=== PATIENT | female | born 1990 | race Caucasian/White ===

== ENCOUNTER 2025-02-28 14:36 | Emergency (ER) | payer SELFPAY ==
[2025-02-28] MEDS ORDERED: Acetaminophen 500 MG TAB ONE (15:10)
[2025-02-28] MEDS ORDERED: Dexamethasone 10 MG/ML VIAL ONE (15:10)
[2025-02-28] MEDS ORDERED: Lidocaine 1% (PF) 30 ML VIAL ONE (18:11)
[2025-02-28] MEDS ORDERED: Boostrix 0.5 ML (Tdap) VIAL (>/=7 yrs of age) ONE (18:11)
[2025-02-28] MEDS ORDERED: Sulfameth/Trimethoprim DS 800-160mg TAB ONE (18:35)
[2025-02-28] MEDS ORDERED: Cephalexin 250 MG CAP ONE (18:36)
== END 2025-02-28 18:57 | disposition home or self-care (01) ==
LOC: CSHERS 14:36
DX: N61.1 Abscess of the breast and nipple (principal); F17.210 Nicotine dependence, cigarettes, uncomplicated
CPT/HCPCS: 90715; J1100